=== PATIENT | male | born 1985 ===

== ENCOUNTER → 2018-08-10 | Outpatient (CLI) | payer BC ==
--- NOTE | 2018-08-10 11:11 | Diagnostic Imaging Report ---
Indication: Hematuria Technique: Grayscale and duplex Doppler imaging of the kidneys performed. Comparison: None Findings: Echogenicity, size and contour of the kidneys are within normal limits. There are echogenic foci with shadowing bilaterally consistent with nonobstructive stones. There is no hydronephrosis. The left kidney is 12 cm and the right 11 cm in length. Urinary bladder is unremarkable. IVC is unremarkable. IMPRESSION: Bilateral nonobstructive nephrolithiasis
== END | disposition home or self-care (01) ==
LOC: ULS 10:08
DX: N20.0 Calculus of kidney (principal)
CPT/HCPCS: 76770

== ENCOUNTER 2019-02-03 11:00 | Outpatient (CLI) | payer BC ==
--- NOTE | 2019-02-04 16:23 | Diagnostic Imaging Report ---
APPROVED REPORT CPT Code: 07474 Present Symptoms Comments: BILATERAL LEGS PAIN. BILATERAL: Imaging reveals a patent deep venous system bilaterally. There is no evidence of thrombus within the femoral, popliteal or tibial segments. The greater saphenous veins are also within normal limits. Doppler indicates normal spontaneous flow within these segments.
--- NOTE | 2019-02-04 16:23 | Diagnostic Imaging Report ---
APPROVED REPORT CPT Code: 69157 Symptoms Bilaterally RIGHT LEG: Common femoral artery waveform analysis is within normal limits at rest. Color duplex sonography reveals patency of the superficial femoral, popliteal and tibial arteries. There is no evidence of stenosis or occlusion within these segments. Doppler tibial artery waveform analyses are within normal limits. Note: The Doppler waveform analysis is triphasic with low amplitude flow. It could be low cardiac output related. LEFT LEG: Common femoral artery waveform analysis is within normal limits at rest. Color duplex sonography reveals patency of the superficial femoral, popliteal and tibial arteries. There is no evidence of stenosis or occlusion within these segments. Doppler tibial artery waveform analyses are within normal limits. Note: The Doppler waveform analysis is triphasic with low amplitude flow. It could be low cardiac output related.
== END 2019-02-03 13:00 | disposition home or self-care (01) ==
LOC: VAS 11:00
DX: M79.605 Pain in left leg (principal); M79.604 Pain in right leg
CPT/HCPCS: 93922; 93925; 93970